=== PATIENT | female | born 1955 ===

== ENCOUNTER → 2021-01-29 | Emergency (ER) | payer SELFPAY ==
[~2021-01-29] VITALS: Ht 157.5 cm; Wt 81.3 kg
[2021-01-29 17:53] VITALS: BP 133/84
== END | disposition left against medical advice (07) ==
LOC: ER 17:40
DX: M25.562 Pain in left knee (principal); Z53.21 Procedure and treatment not carried out due to patient leaving prior to being seen by health care provider